=== PATIENT | male | born 1995 ===

== ENCOUNTER 2023-11-07 22:20 | Emergency (ER) | payer SELFPAY ==
[2023-11-07 22:21] VITALS: BP 135/94
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
[2023-11-07] MEDS: MOTRIN 600 MG PO (23:42)
[2023-11-07 23:46] VITALS: BP 119/68
[2023-11-08 01:00] VITALS: BP 120/65
== END 2023-11-08 01:28 | disposition home or self-care (01) ==
LOC: EMR 22:20
PROVIDERS: EMERGENCY PHYSICIAN Student in an Organized Health Care Education/Training Program
DX: S52.512A Displaced fracture of left radial styloid process, initial encounter for closed fracture (principal); W01.0XXA Fall on same level from slipping, tripping and stumbling without subsequent striking against object, initial encounter
CPT/HCPCS: 99283; 29125; 73110